=== PATIENT | male | born 1965 | race Caucasian/White ===

== ENCOUNTER 2019-08-06 09:00 | Observation (INO) ==
[2019-08-06] MEDS ORDERED: Naloxone 0.4 MG/ML INJ IVP PRN (09:58)
[2019-08-06] MEDS: Apixaban 5 MG TABLET PO SCH ×2 (12:00→21:38)
[2019-08-06] MEDS: Diltiazem CD (24hr) 180 MG CAPSULE PO SCH (13:13)
[2019-08-06 16:29] LABS: Hematocrit 47.3 % (37.5-50.1); Hemoglobin 16.4 g/dL (12.9-16.9); Mean Corpuscular HGB Conc 34.7 g/dL (31.6-35.5); Mean Corpuscular Hemoglobin 30.9 pg (28.0-33.3); Mean Corpuscular Volume 89.2 fL (83.0-100.0); Mean Platelet Volume 9.3 fL (9.4-12.4); Platelet Count 219 K/mcL (140-400); Red Cell Distribution Width 12.4 % (11.5-14.5)
[2019-08-06 16:44] LABS: BUN/Creatinine Ratio 13 (6-26); Blood Urea Nitrogen 13 mg/dL (6-20); Calcium 9.6 mg/dL (8.6-10.3); Carbon Dioxide 30 mEq/L (23-29); Chloride 99 mEq/L (98-107); Glucose 81 mg/dL (70-105); Osmolality,Calculated 279 (280-300); Sodium 135 mEq/L (136-145); eGFR For African Americans > 60 (> 60); eGFR For Non-African Americans > 60 (> 60)
[2019-08-06 16:47] LABS: Magnesium 2.1 mg/dL (1.6-2.6)
[2019-08-06 17:00] LABS: Thyroid Stimulating Hormone 1.332 mcIU/mL (0.340-5.600)
[2019-08-07] MEDS ORDERED: Diltiazem CD (24hr) 180 MG CAPSULE PO SCH (10:12)
[2019-08-07] MEDS: Apixaban 5 MG TABLET PO SCH ×2 (10:14→21:38)
[2019-08-07] MEDS: Diltiazem CD (24hr) 180 MG CAPSULE PO SCH (10:15)
[2019-08-08 07:22] VITALS: BP 122/82
[2019-08-08] MEDS: Diltiazem CD (24hr) 180 MG CAPSULE PO SCH (09:47)
[2019-08-08] MEDS ORDERED: *HR* Midazolam HCl 5 MG/5 ML VIAL IVP ONE (09:47)
[2019-08-08] MEDS ORDERED: *HR* FentaNYL (PF) 250 MCG/5 ML VIAL ONE (09:49)
[2019-08-08] MEDS ORDERED: Naloxone 0.4 MG/ML INJ ONE (09:49)
[2019-08-08] MEDS ORDERED: 0.9 % Sodium Chloride 1,000 ML ONE (09:49)
[2019-08-08] MEDS ORDERED: Lidocaine Viscous Oral Soln 15 ML SOLUTION ONE (09:53)
[2019-08-08] MEDS: Apixaban 5 MG TABLET PO SCH (12:01)
[2019-08-08] MEDS ORDERED: FLU Vac QV 19-20 (6Month+)/PF 0.5 ML SYRINGE IM ONE (13:56)
== END 2019-08-08 14:57 | disposition home or self-care (01) ==
LOC: 2NENU
PROVIDERS: ADMIT Internal Medicine Clinical Cardiac Electrophysiology; ATTEND Internal Medicine Clinical Cardiac Electrophysiology